=== PATIENT | male | born 1980 | race African-American/Black ===

== ENCOUNTER 2017-01-24 16:01 | Emergency (ER) | payer BC | END 2017-01-24 19:32 | disposition home or self-care (01) | LOC: D.ER 16:01 | DX: K59.00 Constipation, unspecified (principal); B20 Human immunodeficiency virus [HIV] disease; F17.200 Nicotine dependence, unspecified, uncomplicated ==

== ENCOUNTER → 2018-05-02 12:48 | Outpatient (CLI) | payer BC ==
[2018-05-02 15:12] LABS: GLUCOSE - CSF 56 MG/DL (40-75); PROTEIN - CSF 34 MG/DL (12-60)
[2018-05-02 15:21] LABS: APPEARANCE - CSF CLEAR
[2018-05-02 15:22] LABS: RBC - CSF 0 cmm (0-0)
== END | disposition home or self-care (01) ==
LOC: D.RAD 12:48
PROVIDERS: Student in an Organized Health Care Education/Training Program
DX: A53.9 Syphilis, unspecified (principal)